=== PATIENT | female | born 1985 | race Caucasian/White ===

== ENCOUNTER 2017-07-11 07:14 | Emergency (ER) | payer OTHER, MEDICAID ==
[~2017-07-11] VITALS: Ht 154.9 cm; Wt 55.3 kg
[~2017-07-11 07:14] MED LIST: AMOXICILLIN 50500 MG PO; IBUPROFEN 600600 M1 PO; LIDOCAINE VISC100 ML PO; NORCO 5-325 TA1 EACH PO
[2017-07-11 08:31] VITALS: BP 90/54
== END 2017-07-11 08:32 | disposition home or self-care (01) ==
LOC: M.ERS 07:14
DX: J11.1 Influenza due to unidentified influenza virus with other respiratory manifestations (principal); F10.99 Alcohol use, unspecified with unspecified alcohol-induced disorder